=== PATIENT | male | born 1970 | race Caucasian/White ===

== ENCOUNTER 2021-08-21 15:49 | Emergency (ER) | payer OTHER ==
[~2021-08-21] VITALS: Ht 177.8 cm; Wt 83.5 kg
[2021-08-21 15:55] VITALS: BP 139/98
== END 2021-08-21 16:21 | disposition home or self-care (01) ==
LOC: M.ERS 15:49
DX: I83.892 Varicose veins of left lower extremity with other complications (principal); I10 Essential (primary) hypertension